=== PATIENT | female | born 1985 | race Caucasian/White ===

== ENCOUNTER 2018-06-29 15:05 | Emergency (ER) | payer SELFPAY ==
[2018-06-29 15:21] VITALS: BP 121/65
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
== END 2018-06-29 17:12 | disposition home or self-care (01) ==
LOC: ER 15:05
DX: S40.022A Contusion of left upper arm, initial encounter (principal); S50.01XA Contusion of right elbow, initial encounter; M79.602 Pain in left arm; M25.521 Pain in right elbow; R07.9 Chest pain, unspecified; M54.9 Dorsalgia, unspecified; Y04.8XXA Assault by other bodily force, initial encounter
CPT/HCPCS: 99283